=== PATIENT | male | born 1945 | race Caucasian/White ===

== ENCOUNTER → 2018-07-22 | Outpatient (CLI) | payer MEDICARE, OTHER ==
[~2018-07-22] MED LIST: AMLO-96 PO; ASPI-1471 PO; LEVO88TA45 PO; LISI5TAB25 PO; LOR5/325 PO; MULT-1081 PO; TAMS0.4C70 PO; ZOLP-1 PO
[2018-07-22 11:09] LABS: PLATELET COUNT, AUTOMATED 237 K/uL (150-450)
== END ==
LOC: LAB 10:53
PROVIDERS: ATTEND Family Medicine
DX: E03.9 Hypothyroidism, unspecified (principal); R11.0 Nausea
CPT/HCPCS: 36415; 82040; 82247; 82310; 82374; 82435; 82565; 82947; 83690; 84075; 84132; 84155; 84295; 84443; 84450; 84460; 84520; 85025

== ENCOUNTER → 2018-09-14 | Outpatient (CLI) | payer MEDICARE, OTHER ==
[~2018-09-14] MED LIST changes: +AMLO-111 PO; -AMLO-96 PO; +FINA1TAB7 PO; +FINA5TAB67 PO
--- NOTE | 2018-09-14 11:01 | RADIOLOGY IMAGING REPORT ---
FACILITY: [facility] - [place] PATIENT NAME: Power Crandall : 1945 MR: [id number] V: [id number] EXAM DATE: ORDERING PHYSICIAN: BUCKY ORDOÑEZ TECHNOLOGIST: Location: [facility] [place] Patient: Power Crandall : 1945 Visit/Account:[id number] Date of Sevice: 09/14/2018 AORTA HISTORY: Former smoker ADDITIONAL HISTORY: None. COMPARISON: None. FINDINGS: Suprarenal aorta measurements 2.1 x 1.8 centimeters. Superior infrarenal aorta measures 1.6 x 1.6 centimeters. Mid infrarenal aorta measures 1.6 x 1.6 centimeters. Inferior infrarenal aorta measures 1.6 x 1.5 centimeters. Right and left common iliac arteries measure 1.1 x 0.9 and 1.1 x 1.0 centimeters respectively. Aorta wall: Unremarkable. No appreciable atherosclerotic disease. IVC is patent IMPRESSION: Normal study. No evidence of aneurysm. Report Dictated By: Bishop Roberts MD at 09/14/2018 10:53 AM Report E-Signed By: Bishop Roberts MD at 09/14/2018 10:57 AM WSN:[email or web address]
== END ==
LOC: US 03:07
PROVIDERS: ATTEND Family Medicine
DX: Z87.891 Personal history of nicotine dependence (principal)
CPT/HCPCS: 93979

== ENCOUNTER → 2019-01-04 | Outpatient (CLI) | payer MEDICARE, OTHER ==
[~2019-01-04] MED LIST changes: -AMLO-111 PO; +AMLO-125 PO; +MIRT7.5T2 PO
== END ==
LOC: LAB 08:47
PROVIDERS: ATTEND Family Medicine
DX: E03.9 Hypothyroidism, unspecified (principal); I10 Essential (primary) hypertension
CPT/HCPCS: 36415; 82310; 82374; 82435; 82565; 82947; 84132; 84295; 84443; 84520